=== PATIENT | male | born 1950 | race Caucasian/White ===

== ENCOUNTER 2017-02-04 09:38 | Emergency (ER) | payer BC ==
[2017-02-04 12:20] VITALS: BP 134/79
[2017-02-04] MEDS ORDERED: Albuterol 2.5 MG/3 ML NEB.SOL* (0.083%) INH ONE (13:23)
--- NOTE | 2017-02-04 13:29 | UC ---
Respiratory Complaint HPI - HPI Summary HPI Summary: Patient presents with a past medical history of asthma in childhood. He presents today with one week onset complaints of dry cough, and chest heaviness that he notices most at night-time, but also has noticed it during the day as well. He states he wakes up because of the symptoms that he describes as a chest heaviness, or pressure. He denies any chest pain, nausea, sweating, weakness. He states the heaviness reminds him of when he was younger and has asthma. He used his inhaler but admits it might be outdated, and is old and has not [id number] his symtpoms. - History of Current Complaint Chief Complaint: UCGeneralIllness Stated Complaint: CHEST CONGESTION Time Seen by Provider: 02/04/17 12:56 Hx Obtained From: Patient Onset/Duration: Gradual Onset, Lasting Days Timing: Constant Severity Initially: Moderate Severity Currently: Moderate Character: Cough: Nonproductive Aggravating Factors: Recumbent Position Alleviating Factors: Upright Position, Spontaneous Resolution Associated Signs And Symptoms: Positive: Negative - Risk Factors Pulmonary Embolism Risk Factors: Negative Pseudomonas Risk Factors: Negative Tuberculosis Risk Factors: Negative - Allergies/Home Medications Allergies/Adverse Reactions: Allergies Allergy/AdvReac Type Severity Reaction Status Date / Time Penicillins [PCN] Allergy Hives Verified 02/04/17 12:20 Home Medications: Home Medications NK [No Home Medications Reported] 02/04/17 [History Confirmed 02/04/17] PMH/Surg Hx/FS Hx/Imm Hx Previously Healthy: Yes Respiratory History: Asthma - Surgical History Surgical History: Yes Surgery Procedure, Year, and Place: , 2012, - Family History Known Family History: Positive: Cardiac Disease - Social History Occupation: Retired Lives: Alone Alcohol Use: Rare Substance Use Type: None Smoking Status (MU): Former Smoker Review of Systems Constitutional: Negative Skin: Negative Eyes: Negative ENT: Negative Respiratory: Cough Cardiovascular: Other - chest pressure, heaviness Gastrointestinal: Negative Genitourinary: Negative Motor: Negative Neurovascular: Negative Musculoskeletal: Negative Neurological: Negative Psychological: Negative Is Patient Immunocompromised?: No All Other Systems Reviewed And Are Negative: Yes Physical Exam Triage Information Reviewed: Yes Appearance: Well-Appearing Vital Signs: Initial Vital Signs Temp 97.5 F 02/04/17 12:14 Pulse 67 02/04/17 12:14 Resp 18 02/04/17 12:14 BP 134/79 02/04/17 12:14 Pulse Ox 99 02/04/17 12:14 Vital Signs Reviewed: Yes Eye Exam: Normal ENT Exam: Normal Neck exam: Normal Neck: Positive: 1 Respiratory Exam: Normal Cardiovascular Exam: Normal Abdominal Exam: Normal Skin Exam: Normal UC Diagnostic Evaluation - Laboratory O2 Sat by Pulse Oximetry: 99 Respiratory Course/Dx - Course Course Of Treatment: Patient presents with a past medical history of asthma. He presents today with three day onset complaints of chest pressure and heaviness that is most noticable at night time, it wakes him up. Today his examination was unremarkable with noted bradycardia, and ekg confirms rate of 48 and sinus bradycardia. His chest xray was negative, and no wheezing noted on examination. He was given an neb treatment of albuterol in the department and patient states he did feel some relief. The EKG was reviewed with the patient and he has not know history of bradycardia, if fact he states he has worn a holter monitor for palpitations, and high heart rate, but never know to have slow heart rate. He is not taking any medication that would cause bradycardia, I have some concerns with the patients symptoms, family history of CAD, and Hypothroidism that he warrents additional evaluation for the bradycardia as I am worried he may be dropping to a slower rate while sleeping causing him to wake with chest pressure. He was in agreement to having his drive him to the er, he was hemodynamically stable at discharge, and report called to Dr. Hutchison and he was discharge in stable condition. - Differential Dx/Diagnosis Differential Diagnosis/HQI/PQRI: Other - chest pressure Provider Diagnoses: chest pressure Discharge - Discharge Plan Condition: Stable Disposition: HOME Patient Education Materials: Bradycardia (ED) Referrals: No Primary Care Phys,NOPCP [Primary Care Provider] - Additional Instructions: go to the ER.
--- NOTE | 2017-02-04 13:53 | RAD ---
Indication: Congestion. 2 views of the chest including dual energy PA views demonstrate no mediastinal shift. Heart is of normal size and configuration. Lung bales are clear. IMPRESSION: No active cardiopulmonary disease is noted.
== END 2017-02-04 14:06 | disposition home or self-care (01) ==
LOC: UCEAST 09:38
DX: R07.89 Other chest pain (principal); R05 Cough; R00.1 Bradycardia, unspecified; Z88.0 Allergy status to penicillin; Z87.891 Personal history of nicotine dependence; Z82.49 Family history of ischemic heart disease and other diseases of the circulatory system
CPT/HCPCS: 71020; 93005; 99212; G0463

== ENCOUNTER 2017-02-04 14:26 | Observation (INO) | payer BC ==
[2017-02-04 17:10] LABS: Hematocrit 40 % (42-52); Hemoglobin 13.6 g/dl (14.0-18.0); Mean Corpuscular HGB Conc 34 g/dl (31-36); Mean Corpuscular Hemoglobin 33 pg (27-31); Mean Corpuscular Volume 95 fL (80-94); Mean Platelet Volume 8 um3 (7.4-10.4); Red Blood Count 4.18 10^6/ul (4.0-5.4); Red Cell Distribution Width 13 % (10.5-15); White Blood Count 6.7 10^3/ul (3.5-10.8)
[2017-02-04 17:35] LABS: Albumin 4.1 g/dL (3.2-5.2); BUN/Creatinine Ratio 11.3 (8-20); Calcium 9.1 mg/dL (8.6-10.3); EGFR African American 74.8 (>60); EGFR Non-African American 58.1 (>60); Globulin 3.2 g/dL (2-4); Potassium 3.7 mmol/L (3.5-5.0); Total Bilirubin 0.5 mg/dL (0.2-1.0); Total Protein 7.3 g/dL (6.4-8.9)
[2017-02-04] MEDS ORDERED: Ondansetron INJ* 2 MG/ML VIAL IV PRN (19:47)
[2017-02-04] MEDS ORDERED: Aspirin Low Dose CHEW TAB* 81 MG PO ONE (19:47)
[2017-02-04] MEDS ORDERED: Al Hydrox/Mg Hydrox/Simet LIQ* 30 ML UDC PO ONE (19:47)
[2017-02-04] MEDS ORDERED: Lidocaine 2% VISCOUS* 15 ML UDC PO ONE (19:47)
[2017-02-04] MEDS ORDERED: Acetaminophen TAB* 325 MG PO PRN (19:50)
[2017-02-04] MEDS ORDERED: Albuterol 2.5 MG/3 ML NEB.SOL* (0.083%) INH PRN (19:50)
--- NOTE | 2017-02-04 20:02 | ED ---
Vick Faulkner Natalie, scribed for Carlos Eduardo Ahuja MD on 02/04/17 at 1709 . HPI Cardiac - HPI Summary HPI Summary: The pt is a 66 y/o M presenting to the ED c/o mid sternal chest tightness onset last night with similar episode on 02/02/17. The pain when it is most severe is rated 4/10, but the patient feels relieved in the ED. The patient woke up last night at 02:00 with chest tightness that lasted until 03:30, and then he went back to sleep. When he woke up, the pain was not as severe as the pain doesnt seem present during the day. He went to [facility] today, where his EKG showed a low heart rate. The pain is aggravated by nothing and is alleviated by coughing. Pt additionally c/o anxiety, lightheadedness, and nonproductive cough. Pt denies CP, SOB, and nausea. He has hx of bronchitis and asthma, no hx of blood clots. The pt has previously had a cardiac stress test. - History of Current Complaint Chief Complaint: EDDysrhythmPalp Stated Complaint: SLOW HEART RATE Time Seen by Provider: 02/04/17 16:49 Hx Obtained From: Patient Onset/Duration: Started Days Ago - started, Resolved Timing: Lasting Days - started 02/02/17 Initial Severity: Moderate Current Severity: None Pain Intensity: 0 Pain Scale Used: 0-10 Numeric Chest Pain Location: Mid Sternal Chest Pain Radiates: No Character: Tightness Aggravating Factor(s): Nothing Alleviating Factor(s): Other: - coughing Associated Signs and Symptoms: Positive: Anxiety, Lightheadedness, Nonproductive Cough. Negative: Chest Pain, Shortness of Breath, Nausea - Allergy/Home Medications Allergies/Adverse Reactions: Allergies Allergy/AdvReac Type Severity Reaction Status Date / Time Penicillins [PCN] Allergy Hives Verified 02/04/17 12:20 PMH/Surg Hx/FS Hx/Imm Hx Previously Healthy: No Endocrine/Hematology History: Denies: Hx Diabetes, Hx Thyroid Disease Cardiovascular History: Denies: Hx Hypertension Respiratory History: Reports: Hx Asthma Denies: Hx Chronic Obstructive Pulmonary Disease (COPD) GI History: Denies: Hx Ulcer - Surgical History Surgery Procedure, Year, and Place: gall bladder, 2013, Infectious Disease History: No Infectious Disease History: Denies: Hx Clostridium Difficile, Hx Hepatitis, Hx Human Immunodeficiency Virus (HIV), Hx of Known/Suspected MRSA, Hx Shingles, Hx Tuberculosis, Hx Known/ Suspected VRE, Hx Known/Suspected VRSA, History Other Infectious Disease, Traveled Outside the [place] in Last 30 Days - Family History Known Family History: Positive: Cardiac Disease, Respiratory Disease - Social History Alcohol Use: Rare Substance Use Type: Reports: None Hx Tobacco Use: No Smoking Status (MU): Former Smoker Review of Systems Negative: Chest Pain Positive: Cough - nonproductive. Negative: Shortness Of Breath Negative: Nausea Neurological: Other - lightheadedness Positive: Anxious All Other Systems Reviewed And Are Negative: Yes Physical Exam Triage Information Reviewed: Yes Vital Signs On Initial Exam: Initial Vitals Temp Pulse Resp BP Pulse Ox 98 F 70 17 153/74 99 02/04/17 14:34 02/04/17 14:34 02/04/17 14:34 02/04/17 14:34 02/04/17 14:34 Vital Signs Reviewed: Yes Appearance: Positive: Well-Appearing, No Pain Distress Skin: Positive: Warm, Skin Color Reflects Adequate Perfusion Head/Face: Positive: Normal Head/Face Inspection Eyes: Positive: EOMI, JANNIE ENT: Positive: Normal ENT inspection Neck: Positive: Supple, Nontender Respiratory/Lung Sounds: Positive: Clear to Auscultation, Breath Sounds Present Cardiovascular: Positive: RRR Abdomen Description: Positive: Nontender, Soft Bowel Sounds: Positive: Present Musculoskeletal: Positive: Normal, Strength/ROM Intact Neurological: Positive: Normal, Sensory/Motor Intact, Alert, Oriented to Person Place, Time Psychiatric: Positive: Affect/Mood Appropriate Diagnostics - Vital Signs Vital Signs Temp Pulse Resp BP Pulse Ox 02/04/17 14:34 98 F 70 17 153/74 99 - Laboratory Lab Results: Lab Results 02/04/17 02/04/17 02/04/17 Range/Units 16:53 16:53 18:35 WBC 6.7 (3.5-10.8) 10^3/ul RBC 4.18 (4.0-5.4) 10^6/ul Hgb 13.6 L (14.0-18.0) g/dl Hct 40 L (42-52) % MCV 95 H (80-94) fL MCH 33 H (27-31) pg MCHC 34 (31-36) g/dl RDW 13 (10.5-15) % Plt Count 187 (150-450) 10^3/ul MPV 8 (7.4-10.4) um3 Neut % (Auto) 71.9 (38-83) % Lymph % (Auto) 19.2 L (25-47) % [place] % (Auto) 7.5 (1-9) % Eos % (Auto) 0.9 (0-6) % Baso % (Auto) 0.5 (0-2) % Absolute Neuts (auto) 4.8 (1.5-7.7) 10^3/ul Absolute Lymphs (auto) 1.3 (1.0-4.8) 10^3/ul Absolute Monos (auto) 0.5 (0-0.8) 10^3/ul Absolute Eos (auto) 0.1 (0-0.6) 10^3/ul Absolute Basos (auto) 0 (0-0.2) 10^3/ul Absolute Nucleated RBC 0 10^3/ul Nucleated RBC % 0 INR (Anticoag Therapy) 0.94 (0.77-1.02) D-Dimer, Quantitative < 200 (Less Than 230) ng/mL Sodium 137 (133-145) mmol/L Potassium 3.7 (3.5-5.0) mmol/L Chloride 103 (101-111) mmol/L Carbon Dioxide 29 (22-32) mmol/L Anion Gap 5 (2-11) mmol/L BUN 14 (6-24) mg/dL Creatinine 1.24 H (0.67-1.17) mg/dL Est GFR ( Amer) 74.8 (>60) Est GFR (Non-Af Amer) 58.1 (>60) BUN/Creatinine Ratio 11.3 (8-20) Glucose 160 H (70-100) mg/dL Calcium 9.1 (8.6-10.3) mg/dL Total Bilirubin 0.50 (0.2-1.0) mg/dL AST 21 (13-39) U/L ALT 14 (7-52) U/L Alkaline Phosphatase 59 (34-104) U/L Troponin I 0.00 (<0.04) ng/mL Total Protein 7.3 (6.4-8.9) g/dL Albumin 4.1 (3.2-5.2) g/dL Globulin 3.2 (2-4) g/dL Albumin/Globulin Ratio 1.3 (1-3) Lipase 18 (11.0-82.0) U/L Result Diagrams: 02/04/17 16:53 02/04/17 16:53 Lab Statement: Any lab studies that have been ordered have been reviewed, and results considered in the medical decision making process. - EKG 16:51 Cardiac Rate: NL EKG Rhythm: Sinus Rhythm - 71 BPM EKG Interpretation: Nml ST. No ectopy. Disposition - Course Course Of Treatment: BP noted and advised to follow up with PCP. Allergies noted. Medications reviewed. DISCUSSED RESULTS WITH FLORENTIN AND HIS . ADMIT HOSPITALIST. - Diagnoses Provider Diagnoses: Chest pain Discharge - Discharge Plan Condition: Stable Disposition: ADMITTED TO [facility] documentation as recorded by the Vick barnes Natalie accurately reflects the service I personally performed and the decisions made by me, Carlos Eduardo Ahuja MD.
--- NOTE | 2017-02-05 04:35 | HP ---
CC: Dr. Maddox * HISTORY AND PHYSICAL: DATE OF ADMISSION: 02/04/17 PRIMARY CARE PROVIDER: Dr. Maddox from [place], [place]. ATTENDING PHYSICIAN WHILE IN THE HOSPITAL: Dr. Tyrell Estrada * (report dictated by Maico Augustine NP). CHIEF COMPLAINT: Chest tightness. HISTORY OF PRESENT ILLNESS: Mr. Thompson is a 66-year-old male patient. He has a history of asthma, seasonal allergies, arthritis and sciatica. He comes into our ER today and says that last week he had cold-like symptoms and he was having some chest tightness and he attributed it to bronchospasm as he has had this similar to before with this. He had some chest tightness at the beginning of the week in the morning. He took his ProAir and that seemed to have helped. He has noticed over the last couple of nights and in the middle of the night, he has been waking up with chest discomfort described as tightness in the chest. No radiation down the arm and no associated symptoms with nausea, diaphoresis, or shortness of breath. He says it is mostly right in the front top part of his chest. He feels tight, does not go unto his jaw. He says they last about an hour, happened last night and the night before, but last night it happened about 2 in the morning and went until 3 in the morning. It kind of waxes and wanes, then goes away, and then he had another episode this morning around 6:30 to 7 o'clock in the morning, again waxed and waned. Finally eventually went away actually after he had some honey and lemon tea elixir. He says that the discomfort was concerning to him. He was originally going to see his primary to have this worked up. He was concerned and went to Urgent Care today and he was transferred here for evaluation. He says he is not feeling congested any more. He denies feeling shortness of breath. He says he has been having a dry cough, but has been nonproductive with the exception he had one episode of a productive brown sputum. Denies any calf, discomfort, denies having any recent trips or travel, denies having any nausea, vomiting, no fevers or chills that he is aware of. He has not had any sick contacts, but he is concerned because of the tightness. He was evaluated in the ED. There was concern that this could represent an acute coronary syndrome. We were asked to evaluate for admission. PAST MEDICAL HISTORY: Significant for: 1. Asthma. 2. Arthritis. 3. Seasonal allergies. 4. Sciatica. PAST SURGICAL HISTORY: He has had a lap teofilo. MEDICATIONS: 1. He is taking Lamisil 250 mg daily for 7 days. He is on day 5 of 7. 2. He is also taking multivitamin 1 tablet daily. 3. Fish oil 1 tablet daily. 4. Glucosamine chondroitin. 5. He is also taking turmeric 1 tablet daily. ALLERGIES: He is allergic to PENICILLIN. FAMILY HISTORY: His mother at the age of 80 of a AZ. Father had a AZ at the age of 95. SOCIAL HISTORY: He is a former smoker. He smoked for about 8 years. Does not drink alcohol. If he does, it is very rarely. Surrogate decision maker is his . REVIEW OF SYSTEMS: There is no documented fever. He denied having any significant weight change. There was no double vision. He denies having any ear discharge. There was no rhinorrhea. No sore throat now. He did admit to feeling congested, but that is improving. He does admit to having a cough, that was productive one time. He denied any shortness of breath, denies having any abdominal pain. There was no nausea. There was no vomiting, no dysuria. There was no frequency, no seizure. There was no loss of consciousness, no pruritus and no skin ulcerations. Review of 14 systems completed, all others negative. PHYSICAL EXAMINATION GENERAL: At this time, Mr. Thompson is a 66-year-old male patient. He is sitting on the ED stretcher. He does not appear to be in any acute distress. He is well nourished and well developed. VITAL SIGNS: Blood pressure 125/73, pulse 67, respirations 15, O2 sat 98%, and temperature 98. HEENT: Head: Atraumatic, normocephalic. Eyes: EOMs are intact. Sclerae anicteric, not pale. Throat: Oral mucosa appears to be moist. No oropharyngeal erythema. NECK: Supple. LUNGS: Clear to auscultation bilaterally. No wheezes, rales or rhonchi. HEART: Sounds S1, S2. Regular rate and rhythm. No murmurs, rubs or gallops. ABDOMEN: Soft, flat, nontender. Bowel sounds present. EXTREMITIES: Pulses were 2+ throughout, moving all 4 extremities with with 5/5 strength. NEUROLOGIC: The patient is awake, he is alert, he is oriented x3. Tongue midline. Management Trainer are equal. He had no gross focal deficits. SKIN: Grossly intact. DIAGNOSTIC STUDIES/LAB DATA: WBC of 6.7, RBC of 4.18, hemoglobin 13.6, hematocrit 40, platelet count of 187. His D-dimer is less than 200. INR 0.94. Sodium 137, potassium 3.7, chloride 103, bicarb 29, BUN 14, creatinine 1.24, glucose 160, calcium 9.1. Total bilirubin 0.5. AST 21, ALT 14. His alk phos is 59. Troponin 0. Albumin 4.1, lipase 18. He did have an EKG obtained today, which showed a normal sinus rhythm, rate of 75, no ST elevations or T wave inversions. He had a chest x-ray done over at [facility] today, which revealed no active cardiopulmonary disease. Old medical records were reviewed. ASSESSMENT AND PLAN: Mr. Thompson is a 66-year-old male patient coming in to the ED today with complaints of chest discomfort. There was concern for acute coronary syndrome. He will be admitted under observation status for: 1. Chest pain. Chest pain is atypical. He says he is fairly active. He does walk routinely. He stretches and does exercise for half an hour to 45 minutes a day. He never has exertional chest pain, but he is concerned because of the chest discomfort he had the last two nights at bedtime. He says he has not been eating meals late and he denies this as a burning discomfort. He was concerned. He came into the ED today. He was evaluated. The ED physician was concerned that this could represent acute coronary syndrome. We were asked to evaluate. I will admit him under observation status for chest pain. At this point, I will cycle his troponins. We will get 2 more sets overnight tonight. If he does have any more episodes of chest discomfort, it will be beneficial to get an EKG to see if there are any changes. If there are, then we will get a Cardiology input. I will get an echo as well. Cycle his trops, place him on aspirin and we will continue to follow him closely. This could be bronchospasm , it could be gastroesophageal reflux disease. If he rules out tonight with serial EKGs and troponins, he could be discharged for an outpatient stress test. 2. Asthma. Continue p.r.n. albuterol. 3. Seasonal allergies. Continue meds as prescribed. 4. History of arthritis and sciatica. I did order p.r.n. pain meds. 5. DVT prophylaxis. He is moderate risk, but I am going to put him on SCDs. 6. Code status. He is a full code. 7. Fluids, electrolytes, and nutrition. Regular diet. TIME SPENT: Time spent on the admission was 60 minutes, greater than half the time was spent [id number] with the patient, obtaining my history and physical , the other half of the time was spent going over the plan of care with the patient and implementing plan of care. I did discuss the plan of care with my attending, Dr. Estrada, he is in agreement. MAICO AUGUSTINE, DISPENSARY TECHNICIAN [id number]/CPS #: [id number] ELIDA
[2017-02-05 06:02] LABS: Hematocrit 36 % (42-52); Hemoglobin 12.3 g/dl (14.0-18.0); Mean Corpuscular HGB Conc 34 g/dl (31-36); Mean Corpuscular Hemoglobin 32 pg (27-31); Mean Corpuscular Volume 94 fL (80-94); Mean Platelet Volume 8 um3 (7.4-10.4); Red Blood Count 3.82 10^6/ul (4.0-5.4); Red Cell Distribution Width 13 % (10.5-15); White Blood Count 4.9 10^3/ul (3.5-10.8)
[2017-02-05 06:16] LABS: BUN/Creatinine Ratio 13.2 (8-20); Calcium 8.5 mg/dL (8.6-10.3); EGFR African American 76.9 (>60); EGFR Non-African American 59.8 (>60); HDL Cholesterol 46.1 mg/dL; Potassium 3.9 mmol/L (3.5-5.0)
[2017-02-05] MEDS ORDERED: Aspirin Low Dose CHEW TAB* 81 MG PO SCH (09:00)
[2017-02-05] MEDS ORDERED: TERBINAFINE HCL 250 MG PO SCH (09:00)
--- NOTE | 2017-02-05 10:24 | ECHO ---
Patient: ALLI BELL [facility] Rec#: [id number] : 1950 Date: 02/05/2017 Age: 66y Height: 167.64 cm / 66.0 in Weight: 76.2 kg / 167.9 lbs Sex: M BSA: 1.86 Room#: 444 Admit Date#: 02/04/2017 Type: Inpatient Referring: Maico Augustine NP Reading: Dax Castillo MD Assembly Hand: Zenia Chambers RDCS,RDMS Transthoracic Echocardiogram Indication: CP BP: 113/64 HR: 74 Rhythm: NSR Findings History: asthma Technical Comments: The study quality is good. Left Ventricle: The left ventricular chamber size is normal. There is no left ventricular hypertrophy. The estimated ejection fraction is 55-60%. Normal left ventricular diastolic filling is observed. Left Atrium: The left atrial chamber size is normal. Right Ventricle: The right ventricular chamber size and systolic function are within normal limits. Right Atrium: The right atrial cavity size is normal. There is evidence of an atrial septal aneurysm. Aortic Valve: The aortic valve is trileaflet. Systolic excursion of the aortic valve is normal. There is a trace of aortic regurgitation. There is no evidence of aortic stenosis. Mitral Valve: The mitral valve leaflets appear normal. There is a trace of mitral regurgitation. There is no evidence of mitral stenosis. Tricuspid Valve: The tricuspid valve leaflets are normal. There is trace to mild tricuspid regurgitation. Unable to estimate the right ventricular systolic pressure. Pulmonic Valve: There is no evidence of pulmonic valve thickening. There is trace to mild pulmonic regurgitation. Pericardium: There is no significant pericardial effusion. Aorta: The aortic root appears normal. There is no dilatation of the aortic arch. Pulmonary Artery: The main pulmonary artery appears normal. Venous: The inferior vena cava is dilated. There is a greater than 50% respiratory change in the inferior vena cava dimension. Summary: There was not any prior study for comparison. Conclusions The estimated ejection fraction is 55-60%. There is evidence of an atrial septal aneurysm. There is a trace of aortic regurgitation. There is a trace of mitral regurgitation. There is trace to mild tricuspid regurgitation. There is trace to mild pulmonic regurgitation. Measurements Name Value Normal Range RVIDd (AP) 2D 3.1 cm (0.9 - 2.6) RVDdMajor (2D) 3.4 cm (2.2 - 4.4) RAd ISD 4CH 5 cm (3.4 - 4.9) RA (A4C)W 3.1 cm (2.9 - 4.6) IVSd (2D) 1.1 cm (0.6 - 1) LVPWd (2D) 1 cm (0.6 - 1) LVIDd (2D) 4.6 cm (3.6 - 5.4) LVIDs (2D) 2.8 cm - LV FS (2D) 39 % (25 - 45) Aortic Annulus 2.2 cm (1.4 - 2.6) Ao root diameter (2D) 2.8 cm (2.1 - 3.5) Ascending Ao 2.7 cm (2.1 - 3.4) Aortic arch 3.3 cm (1.8 - 3.4) LA dimension (AP) 2D 3.9 cm (2.3 - 3.8) LAd ISD 4CH 5 cm (2.9 - 5.3) LA ISD 4CH W 4.1 cm (2.5 - 4.5) Name Value Normal Range LA ESV SP 4CH (A/L) 46.68 ml - LA ESV SP 2CH (A/L) 57.41 ml - LA ESV BP (A/L) 52.27 ml - LA ESV BP (A/L) index 28 ml/m2 - LA ESV SP 4CH (MOD) 43.38 ml - LA ESV SP 2CH (MOD) 54.13 ml - Name Value Normal Range MV E-wave Vmax 0.7 m/sec - MV deceleration time 215 msec - MV A-wave Vmax 0.6 m/sec - MV E:A ratio 1.2 ratio - P. vein S-wave Vmax 0.6 m/sec - P. vein D-wave Vmax 0.5 m/sec - P. vein S:D Vmax ratio 1.1 ratio - P. vein A-wave duration 106 msec - LV septal e' Vmax 0.08 m/sec - LV lateral e' Vmax 0.1 m/sec - LV E:e' septal ratio 9 ratio - LV E:e' lateral ratio 7 ratio - Name Value Normal Range AV Vmax 1.3 m/sec - AV VTI 31 cm - AV peak gradient 7 mmHg - AV mean gradient 3.5 mmHg - LVOT Vmax 1.1 m/sec - LVOT VTI 24 cm - LVOT peak gradient 5 mmHg - LVOT mean gradient 2.2 mmHg - RAIMUNDO Vmax 0.7 m/sec - Name Value Normal Range RAP 8 mmHg - IVC diameter 2.2 cm - Name Value Normal Range PV Vmax 0.6 m/sec - PV peak gradient 1.4 mmHg -
--- NOTE | 2017-02-05 11:57 | PN ---
Progress Note - Progress Note Date of Service: 02/05/17 Note: Discharge Note Primary Diagnosis: chest pain unknown etiology Secondary diagnoses: bronchitis asthma osteoarthritis anemia onychomycosis Procedures: none Consultations: none Pertinent test results: Echo w/ EF 55-60%, atrial septal aneurysm Laboratory Tests 02/04/17 02/04/17 02/04/17 16:53 16:53 21:45 WBC Hgb 13.6 L Hct 40 L Plt Count 187 Creatinine 1.24 H Hemoglobin A1c Troponin I 0.00 0.00 Triglycerides Cholesterol LDL Cholesterol HDL Cholesterol 02/04/17 02/05/17 02/05/17 23:45 05:35 05:35 WBC 4.9 Hgb 12.3 L Hct 36 L Plt Count 165 Creatinine 1.21 H Hemoglobin A1c Troponin I 0.00 Triglycerides 77 Cholesterol 149 LDL Cholesterol 88 HDL Cholesterol 46.1 02/05/17 05:35 WBC Hgb Hct Plt Count Creatinine Hemoglobin A1c 5.8 H Troponin I Triglycerides Cholesterol LDL Cholesterol HDL Cholesterol Tests pending upon discharge: none Physical Exam: Selected Entries 02/05/17 07:48 Temperature 36.6 C Pulse Rate 56 Respiratory 16 Rate Blood Pressure 136/82 (mmHg) O2 Sat by Pulse 99 Oximetry Alert, no distress Lungs: clear Heart: RRR
[2017-02-05 12:02] VITALS: BP 127/73
--- NOTE | 2017-02-06 10:43 | DS ---
CC: Dr. Farrukh Maddox in [place], [place]. DISCHARGE SUMMARY: DATE OF ADMISSION: 02/04/17 DATE OF DISCHARGE: 02/05/17 PRIMARY DIAGNOSIS: Chest pain unknown etiology. SECONDARY DIAGNOSES: 1. Bronchitis with asthma exacerbation. 2. Osteoarthritis. 3. Anemia. 4. Onychomycosis. MEDICATIONS ON DISCHARGE: 1. Acetaminophen as needed. 2. Aspirin 81 mg p.o. daily. 3. Terbinafine 250 mg p.o. daily. HOSPITAL COURSE: The patient was admitted to [facility] with atypical chest tightness. His initial EKG showed normal sinus rhythm and no ischemic changes. There is some T-wave flattening in leads III and aVF. Echocardiogram was completed, which showed ejection fraction in the 55% to 60% range, trivial valve leaks, and an atrial septal aneurysm. His initial troponin was 0 and it was repeated two more times at 0. His creatinine was 1.24 on admission, 1.21 on discharge. Cholesterol was 149. Hemoglobin A1c was 5.8. His white count was normal, but hemoglobin was 13.6, hematocrit 40%, platelets 187,000. The patient was monitored overnight on telemetry and had no significant arrhythmias. The patient was advised that he has chest pain potentially due to bronchitis or heartburn. He does not have an acute coronary syndrome. Other etiologies such as pneumonia was ruled out by chest x-ray and pulmonary embolism was ruled out by D- dimer less than 200. The patient was advised to see primary care within next week and have an outpatient stress test as he is at low risk, but has background risk of heart disease. DISPOSITION: To home. ACTIVITY: As tolerated. DIET: Should be a heart healthy low-salt diet. [id number]/[facility] #: [id number] [facility] CENTERFelicia
== END 2017-02-05 12:30 | disposition home or self-care (01) ==
LOC: ED 14:26 → MEDTELE 19:43
PROVIDERS: ADMIT Hospitalist; ATTEND Internal Medicine
DX: J45.901 Unspecified asthma with (acute) exacerbation (principal); M19.90 Unspecified osteoarthritis, unspecified site; D64.9 Anemia, unspecified; B35.1 Tinea unguium; Z88.0 Allergy status to penicillin; Z79.899 Other long term (current) drug therapy; J30.2 Other seasonal allergic rhinitis; R07.9 Chest pain, unspecified
CPT/HCPCS: 36415; 80048; 80053; 80061; 83036; 83690; 84484; 85025; 85379; 85610; 93005; 93306; 99284; A9270-GY; G0378

== ENCOUNTER → 2018-10-26 | Day surgery (SDC) | payer MEDICARE ==
[~2018-10-26] MED LIST: Buffered Lidocaine 1% SYRIN* 1 ML/SYRINGE INTRADERM ONE; Bupivacaine 0.25% EPI 200,000* 30 ML SDV ONE; Bupivacaine 0.5%* 50 ML MDV VIAL ONE; Clindamycin 900 MG/D5W BAG(*) 900 MG/50 ML BAG IVPB ONE; DiMENhydriNATE IV* 50 MG/ML VIAL IV PUSH PRN; EPHEDrine (Pressors)* 50 MG/ML VIAL ONE; EPINEPHRINE 1 MG/ML 1 ML VIAL ONE; Famotidine IV* 10 MG/ML 2 ML (20 mg) IV ONE; Famotidine IV* 10 MG/ML 2 ML (20 mg) ONE; HYDROcodone/ACETAMIN 5-325 MG* 1 TAB PO PRN; Hydrocortisone INJ* 100 MG VIAL IV ONE; Hydrocortisone INJ* 100 MG VIAL ONE; Ketorolac INJ* 30 MG/ML 1 ML VIAL IV PRN; Lactated Ringers 1000 ML Bag* 1,000 ML IV SCH; Lidocaine 2% PF * 5 ML VIAL ONE; Midazolam* 1 MG/ML 2 ML VIAL (2 MG) ONE; Naloxone* 0.4 MG/ML 1 ML VIAL IV PRN; Ondansetron INJ* 2 MG/ML VIAL ONE; Propofol* 10 MG/ML 20 ML BTL ONE; ROPIVACAINE 5 MG/ML 30 ML BTL (0.5%) ONE; Rocuronium* 10 MG/ML VIAL ONE; fentaNYL* 50 MCG/ML 2 ML VIAL (100 MCG VIAL) IV PRN; fentaNYL* 50 MCG/ML 2 ML VIAL (100 MCG VIAL) ONE; oxyCODONE/Acetamin 5/325 MG* TAB PO PRN
[2018-10-26 17:24] VITALS: BP 134/66
--- NOTE | 2018-10-27 23:38 | OP ---
OPERATIVE REPORT: DATE OF OPERATION: 10/26/18 DATE OF : 48 SURGEON: Viktor Hutchinson MD. NEURO INTENSIVIST PHYSICIAN: HUSAM Cid. A physician medical research assistant was required for the length of the procedure for assistance with patient positi oning, instrumentation, and closure. ANESTHESIOLOGIST: Dr. Chapito Romero. ANESTHESIA: General anesthesia, regional interscalene block anesthesia. PRE-OP DIAGNOSES: 1. Right shoulder rotator cuff tendon tear, full thickness, supraspinatus. 2. Right shoulder subacromial impingement bursitis. 3. Right shoulder AC joint osteoarthritis. 4. Right shoulder proximal biceps tendinosis. POST-OP DIAGNOSES: 1. Right shoulder rotator cuff tendon tear, full thickness, supraspinatus. 2. Right shoulder subacromial impingement bursitis. 3. Right shoulder AC joint osteoarthritis. 4. No significant right shoulder proximal biceps tendinosis. OPERATIVE PROCEDURES: 1. Right shoulder arthroscopic rotator cuff tendon repair, supraspinatus, double row. 2. Right shoulder arthroscopic subacromial decompression. 3. Right shoulder arthroscopic distal clavicle resection. 4. Right shoulder arthroscopic evaluation of superior labrum and long head biceps tendon. ANTIBIOTICS: Clindamycin 900 mg IV. IV FLUIDS: 1100 cc crystalloid. [id number] TIME: 97 minutes. SPECIMEN: None. IMPLANTS: Arthrex double loaded Corkscrew suture anchor with FiberTape, doubly loaded. I also used an Arthrex SwiveLock suture anchor for my lateral row anchor and I also used a free suture from that anchor. I also used a single FiberWire #2 suture for a [id number] stitch. COMPLICATIONS: None. ESTIMATED BLOOD LOSS: Minimal. INDICATIONS FOR PROCEDURE: The patient is a 68-year-old man, right hand dominant, retired, who prese nted to me with pain since June 2018. The patient responded insufficiently to nonoperative management . MRI revealed rotator cuff tear and additional pathology. The patient was also being treated concu rrently by Dr. Ram of Rheumatology, with some improvement on oral prednisone. The patient opted t o move forward with surgery now rather than waiting for the rheumatologic treatment to complete given his concern about the full thickness rotator cuff tear. I offered either option. I discussed the risks and potential complications of the procedure. I expressed some concern that th e patient's prednisone, that he is currently on, may impair tendon healing. DESCRIPTION OF PROCEDURE: In the preoperative holding, the patient signed a written consent. The op erative extremity was marked in preoperative holding. The patient was taken back to the operating ro om after Anesthesia performed a regional interscalene nerve block in preoperative holding. In the operating room, the patient was sedated and intubated and moved to the lateral decubitus posit ion. Lees bag was hardened. Axillary roll placed. Bony prominences padded. Longitudinal traction of 15 pounds in the appropriate amount of shoulder forward flexion and abduction. The right shoulder was prepped and draped. Surgical time-out performed. I infused 30 cc of normal saline into the glenohumeral joint from posterior. I established a posteri or glenohumeral joint portal and started my diagnostic arthroscopy. No significant articular cartilage lesion. No loose body. No subscapularis tendon tear. No clear s uperior labral tear. I established an anterior glenohumeral joint portal under direct visualization. I entered an arthros copic probe and then a shaver. I used these two to assess the superior labrum as well as the long he ad biceps tendon. There was clearly no superior labral tear. There was only the faintest hint of so me erythema along the tendon. No fraying of the tendon or tear noticeable. Therefore, I decided the long head biceps tendon did not require treatment. The supraspinatus clearly had a high-grade tear. I could not yet tell if this was full thickness or near full thickness. I debrided some of it with an arthroscopic shaver. I placed a spinal needle to nikkie the high grade tear. I removed the instruments and fluid from the glenohumeral joint and moved to the subacromial space. In the subacromial space, I made anterior and posterior portals and then followed that by making late ral and posterolateral portals. I used an arthroscopic shaver to debride significant bursitic tissue about the subacromial space. I was then able to visualize the spinal needle that I placed for marking. It was present quite anterio rly. There was a full-thickness tear. I first performed my subacromial decompression. I debrided the undersurface of the acromion with a c autery device and then I smoothed out the anterior aspect of the acromion with an arthroscopic jesus. I next moved to the rotator cuff. I better defined the rotator cuff tear. It was a crescent in shap e. It was bigger than I expected based on MRI. It was about the mid part of the supraspinatus. It was not all the way anterior because there was some distance between the long head biceps tendon and the start of the tear. It did not go to the posterior aspect of the supraspinatus, but it was still larger than expected. I prepared the footprint with an arthroscopic jesus. I found that the tendon could be brought to bone nicely with a grasper. I placed appropriate plastic cannulas. I placed a medial row anchor through a superolateral portal. I used an antegrade passer to pass horizontal mattress stitches using FiberTape, two of them with th e FiberTape from that anchor. These were excellent bites. The tendon quality looked good. I next tied these knots. This advanced the tendons nicely. There were some tendon just posterior to my posterior stitch that appeared to have torn, sort of tendon off of tendon. I next placed my lateral row anchor with all the tape from the medial row. This brought a significan t amount of tendon to bone. I probed the repair and it was excellent, appeared stable. There was st ill that flap of a little bit of rotator cuff tendon off of tendon. To make the posterior aspect of the tendon appear very cosmetic and pretty, I placed 2 additional sti tches. The first was a simple stitch placed from tendon to tendon using a retrograde suture passer. I passed that suture. I then passed a suture from the lateral row anchor, a simple stitch into that superior cuff to bring it down to inferior cuff. I placed both of the stitches before tying either of them. I next tied both of them and was happy with the results. The repair appeared very stable. I next moved to the AC joint. I debrided with a cautery device and then I removed 8 mm to the distal end of the clavicle with an arthroscopic jesus. I removed the instruments and fluid from subacromial space. I closed the skin incisions with figure- of-eight and 12 stitches using nylon 3-0 suture. Xeroform, 4x4s, ABDs, and foam tape. Sling with abduction pillow. The patient was awakened, extubat ed, and transferred to the PACU. DISPOSITION: The patient was given wound care instructions. Sling at all times. Follow up with me francy lawrence 10 to 14 days postoperatively. Percocet as needed for pain control. No physical therapy. Sling a t all times. [id number]/[facility] #: [id number]
== END | disposition home or self-care (01) ==
LOC: OR 09:36
PROVIDERS: ATTEND Orthopaedic Surgery
DX: S46.011A Strain of muscle(s) and tendon(s) of the rotator cuff of right shoulder, initial encounter (principal); M75.41 Impingement syndrome of right shoulder; M19.011 Primary osteoarthritis, right shoulder; M75.51 Bursitis of right shoulder; X50.9XXA Other and unspecified overexertion or strenuous movements or postures, initial encounter; Y93.89 Activity, other specified; Y92.096 Garden or yard of other non-institutional residence as the place of occurrence of the external cause; G89.18 Other acute postprocedural pain
CPT/HCPCS: C1713; J1720; J2250; J2405; J2704; J2795; J3010; J3490

== ENCOUNTER 2020-06-11 07:28 | Observation (INO) ==
[~2020-06-11 07:28] MED LIST changes: +Buffered Lidocaine 1% SYRIN 1 ml INTRADERM ONE; -Buffered Lidocaine 1% SYRIN* 1 ML/SYRINGE INTRADERM ONE; -Bupivacaine 0.25% EPI 200,000* 30 ML SDV ONE; -Bupivacaine 0.5%* 50 ML MDV VIAL ONE; -Clindamycin 900 MG/D5W BAG(*) 900 MG/50 ML BAG IVPB ONE; +DiMENhydriNATE IV 50 mg/ml 1 ml VIAL IV PUSH ONE; -DiMENhydriNATE IV* 50 MG/ML VIAL IV PUSH PRN; -EPHEDrine (Pressors)* 50 MG/ML VIAL ONE; -EPINEPHRINE 1 MG/ML 1 ML VIAL ONE; +Famotidine IV 10 MG/ML 2 ml VIAL (20 mg) IV ONE; -Famotidine IV* 10 MG/ML 2 ML (20 mg) IV ONE; -Famotidine IV* 10 MG/ML 2 ML (20 mg) ONE; -HYDROcodone/ACETAMIN 5-325 MG* 1 TAB PO PRN; -Hydrocortisone INJ* 100 MG VIAL IV ONE; -Hydrocortisone INJ* 100 MG VIAL ONE; -Ketorolac INJ* 30 MG/ML 1 ML VIAL IV PRN; -Lactated Ringers 1000 ML Bag* 1,000 ML IV SCH; -Lidocaine 2% PF * 5 ML VIAL ONE; -Midazolam* 1 MG/ML 2 ML VIAL (2 MG) ONE; -Naloxone* 0.4 MG/ML 1 ML VIAL IV PRN; -Ondansetron INJ* 2 MG/ML VIAL ONE; -Propofol* 10 MG/ML 20 ML BTL ONE; -ROPIVACAINE 5 MG/ML 30 ML BTL (0.5%) ONE; -Rocuronium* 10 MG/ML VIAL ONE; -fentaNYL* 50 MCG/ML 2 ML VIAL (100 MCG VIAL) IV PRN; -fentaNYL* 50 MCG/ML 2 ML VIAL (100 MCG VIAL) ONE; -oxyCODONE/Acetamin 5/325 MG* TAB PO PRN
[2020-06-11] MEDS ORDERED: DiMENhydriNATE IV 50 mg/ml 1 ml VIAL ONE (08:00)
[2020-06-11] MEDS ORDERED: Clindamycin 900 MG/D5W BAG 900 MG/50 ML BAG IVPB ONE (08:00)
[2020-06-11] MEDS ORDERED: Famotidine IV 10 MG/ML 2 ml VIAL (20 mg) ONE (08:00)
[2020-06-11] MEDS ORDERED: Hydrocortisone INJ 100 MG/2ML 2 ML VIAL ONE (08:00)
[2020-06-11] MEDS: Lactated Ringers 1000 ml BAG 1,000 ML IV SCH ×3 (08:29→14:22)
[2020-06-11] MEDS ORDERED: Hydrocortisone INJ 100 MG/2ML 2 ML VIAL IV ONE (08:40)
[2020-06-11] MEDS ORDERED: fentaNYL 100 mcg/2 ml 50 MCG/ML VIAL ONE (09:24)
[2020-06-11] MEDS ORDERED: Propofol 10 MG/ML 20 ML BTL ONE (09:24)
[2020-06-11] MEDS ORDERED: Midazolam 2 mg/2 ml VIAL 1 mg/ml 2 ml VIAL (2 mg) ONE (09:24)
[2020-06-11] MEDS ORDERED: Lidocaine 2% PF 5 ML VIAL ONE (09:24)
[2020-06-11] MEDS ORDERED: Morphine 4 MG/ML VIAL (1 ml) IV PRN (10:22)
[2020-06-11] MEDS ORDERED: Acetaminophen IV 1 GM/100ML 1,000 MG/100 ML VIAL IVPB ONE (10:22)
[2020-06-11] MEDS ORDERED: Naloxone 0.4 mg VIAL 0.4 mg/ml 1 ml VIAL IV PRN (10:22)
[2020-06-11] MEDS ORDERED: Prochlorperazine 5 mg/ml 2 ml VIAL (10 mg) IV PRN (10:22)
[2020-06-11] MEDS ORDERED: fentaNYL 100 mcg/2 ml 50 MCG/ML VIAL IV PRN (10:22)
[2020-06-11] MEDS ORDERED: Bupivacaine 0.5% SDV PF 30ML VIAL ONE (10:29)
[2020-06-11] MEDS ORDERED: EPHEDrine (Pressors) 50 MG/ML VIAL ONE (10:29)
[2020-06-11] MEDS ORDERED: diPHENhydraMINE 25 mg TAB PO PRN (12:27)
[2020-06-11] MEDS ORDERED: diPHENhydraMINE IV 50 MG/ML 1 ml VIAL (BENADRYL) IV PRN (12:27)
[2020-06-11] MEDS ORDERED: Morphine 2 MG/ML SYRINGE IV PRN (12:27)
[2020-06-11] MEDS ORDERED: Lactulose 30 ml UDC PO PRN (12:27)
[2020-06-11] MEDS ORDERED: Magnesium Hydroxide LIQ 30 ML UDC PO PRN (12:27)
[2020-06-11] MEDS ORDERED: Ondansetron 4 mg VIAL 2 MG/ML 2 ml VIAL IV PRN (12:27)
[2020-06-11] MEDS ORDERED: Ondansetron ODT 4 mg TAB 4 MG TAB PO PRN (12:27)
[2020-06-11] MEDS ORDERED: Albuterol HFA INHALER 8 gm MDI INH PRN (12:35)
[2020-06-11] MEDS ORDERED: Acetaminophen IV 1 GM/100ML 100 ML ONE (12:37)
[2020-06-11] MEDS: Clindamycin 600 MG/D5W BAG 600 MG/50 ML BAG IV SCH (18:16)
[2020-06-11] MEDS: Magnesium Hydroxide LIQ 30 ML UDC PO SCH (21:17)
[2020-06-11] MEDS: Mupirocin 2% OINT TUBE TOPICAL SCH (21:19)
[2020-06-12] MEDS: Lactated Ringers 1000 ml BAG 1,000 ML IV SCH
[2020-06-12] MEDS: Clindamycin 600 MG/D5W BAG 600 MG/50 ML BAG IV SCH ×2 (03:24→09:29)
[2020-06-12 05:25] LABS: Hematocrit 31 % (42-52); Hemoglobin 10.3 g/dL (14.0-18.0); Mean Platelet Volume 7.9 fL (7.4-10.4); Platelet Count 156 10^3/uL (150-450)
[2020-06-12 05:46] LABS: Calcium 8.3 mg/dL (8.6-10.3); EGFR African American 76.1 (>60); EGFR Non-African American 62.9 (>60); Potassium 3.4 mmol/L (3.5-5.0)
[2020-06-12] MEDS ORDERED: Vitamin THERAPEUTIC TAB PO SCH (09:00)
[2020-06-12] MEDS: Mupirocin 2% OINT TUBE TOPICAL SCH (09:05)
[2020-06-12] MEDS: Magnesium Hydroxide LIQ 30 ML UDC PO SCH (09:05)
[2020-06-12 11:00] VITALS: BP 112/63
== END 2020-06-12 13:05 | disposition home or self-care (01) ==
LOC: OR 07:28 → EDSTATUS 07:30 → SSU 14:12 → INTOOBSV 14:12
PROVIDERS: ADMIT Orthopaedic Surgery Adult Reconstructive Orthopaedic Surgery; ATTEND Orthopaedic Surgery Adult Reconstructive Orthopaedic Surgery

== ENCOUNTER 2021-06-08 06:05 | Observation (INO) ==
[~2021-06-08 06:05] MED LIST changes: -DiMENhydriNATE IV 50 mg/ml 1 ml VIAL IV PUSH ONE; +DiMENhydriNATE IV 50 mg/ml 1 ml VIAL IV PUSH PRN; -Famotidine IV 10 MG/ML 2 ml VIAL (20 mg) IV ONE; +Lactated Ringers 1000 ml BAG 1,000 ML IV SCH; +Naloxone 0.4 mg VIAL 0.4 mg/ml 1 ml VIAL IV PRN; +Ondansetron 4 mg VIAL 2 MG/ML 2 ml VIAL IV PRN; +diPHENhydraMINE IV 50 MG/ML 1 ml VIAL (BENADRYL) IV PRN; +fentaNYL 100 mcg/2 ml 50 MCG/ML VIAL IV PRN
[2021-06-08] MEDS ORDERED: Clindamycin 900 MG/D5W BAG 900 MG/50 ML BAG IVPB ONE (06:55)
[2021-06-08] MEDS ORDERED: Buffered Lidocaine 1% SYRIN 1 ml INTRADERM ONE (07:08)
[2021-06-08] MEDS ORDERED: Ropivacaine 5 MG/ML 20 ML VIAL 0.5% (100 MG) ONE (07:10)
[2021-06-08] MEDS ORDERED: Midazolam 2 mg/2 ml VIAL 1 mg/ml 2 ml VIAL (2 mg) ONE (07:31)
[2021-06-08] MEDS ORDERED: Propofol 10 MG/ML 20 ML BTL ONE ×2 (07:31)
[2021-06-08] MEDS ORDERED: fentaNYL 100 mcg/2 ml 50 MCG/ML VIAL ONE (07:39)
[2021-06-08] MEDS ORDERED: Lidocaine 2% PF 5 ML VIAL ONE (07:48)
[2021-06-08] MEDS ORDERED: EPHEDrine (Pressors) 50 MG/ML VIAL ONE (08:16)
[2021-06-08] MEDS ORDERED: Morphine 2 MG/ML SYRINGE IV PRN (10:20)
[2021-06-08] MEDS ORDERED: Ondansetron 4 mg VIAL 2 MG/ML 2 ml VIAL IV PRN (10:20)
[2021-06-08] MEDS ORDERED: diPHENhydraMINE IV 50 MG/ML 1 ml VIAL (BENADRYL) IV PRN (10:20)
[2021-06-08] MEDS ORDERED: Lactulose 30 ml UDC PO PRN (10:20)
[2021-06-08] MEDS ORDERED: Magnesium Hydroxide LIQ 30 ML UDC PO PRN (10:20)
[2021-06-08] MEDS ORDERED: Ondansetron ODT 4 mg TAB 4 MG TAB PO PRN (10:20)
[2021-06-08] MEDS ORDERED: diPHENhydraMINE 25 mg TAB PO PRN (10:20)
[2021-06-08] MEDS ORDERED: Clindamycin 600 MG/D5W BAG 600 MG/50 ML BAG IV SCH (11:00)
[2021-06-08] MEDS: Lactated Ringers 1000 ml BAG 1,000 ML IV SCH ×2 (11:40→22:42)
[2021-06-08] MEDS: Clindamycin 600 MG/D5W BAG 600 MG/50 ML BAG IV SCH (17:01)
[2021-06-08] MEDS: Magnesium Hydroxide LIQ 30 ML UDC PO SCH (22:13)
[2021-06-09] MEDS: Clindamycin 600 MG/D5W BAG 600 MG/50 ML BAG IV SCH ×2 (01:54→08:04)
[2021-06-09 06:02] LABS: Hematocrit 28 % (42-52); Hemoglobin 9.6 g/dL (14.0-18.0); Mean Platelet Volume 8.2 fL (7.4-10.4); Platelet Count 150 10^3/uL (150-450)
[2021-06-09 06:32] LABS: Calcium 8.4 mg/dL (8.6-10.3); Potassium 4.2 mmol/L (3.5-5.0); eGFR CKD-EPI 65.3 (>60)
[2021-06-09] MEDS ORDERED: Vitamin THERAPEUTIC TAB PO SCH (09:00)
[2021-06-09] MEDS: Magnesium Hydroxide LIQ 30 ML UDC PO SCH (09:52)
[2021-06-09 12:29] VITALS: BP 109/71
== END 2021-06-09 12:50 | disposition home or self-care (01) ==
LOC: SSU 06:05 → SDS 06:05 → EDSTATUS 09:15
PROVIDERS: ADMIT Orthopaedic Surgery Adult Reconstructive Orthopaedic Surgery; ATTEND Orthopaedic Surgery Adult Reconstructive Orthopaedic Surgery